=== PATIENT | male | born 1990 | race Two or more races ===

== ENCOUNTER 2020-09-15 08:08 | Outpatient (CLI) | payer OTHER | END 2020-09-15 08:14 | disposition home or self-care (01) | LOC: LAB 08:08 | DX: M41.87 Other forms of scoliosis, lumbosacral region (principal); M54.5 Low back pain; N30.00 Acute cystitis without hematuria; E03.8 Other specified hypothyroidism; R73.03 Prediabetes; E55.9 Vitamin D deficiency, unspecified; E78.2 Mixed hyperlipidemia; D64.89 Other specified anemias ==